=== PATIENT | male | born 1970 | race Caucasian/White ===

== ENCOUNTER → 2024-11-24 | Outpatient (CLI) | payer BC, SELFPAY ==
--- NOTE | 2024-11-24 13:44 | XR_ITS ---
Examination:Left hip AP, lateral, AP pelvis 3 views Technique: Hip AP lateral, AP pelvis, 3 views Exam date and time:November 24, 2024 at 1355 hours INDICATIONS: Left hip pain beginning 5 years ago. FINDINGS: Severe left hip osteoarthritis, severe joint space narrowing with subarticular sclerosis Advanced right hip osteoarthritis Bones of the pelvis intact No fracture IMPRESSION: Severe left hip osteoarthritis Advanced right hip osteoarthritis.
== END | disposition home or self-care (01) ==
PROVIDERS: PCP Family Medicine; Referring Provider Family Medicine; Visit Provider Family Medicine
DX: M16.0 Bilateral primary osteoarthritis of hip (principal)
CPT/HCPCS: 73502

== ENCOUNTER 2025-03-18 09:48 | Outpatient (AMB) | payer BC, SELFPAY ==
[2025-03-18 10:19] VITALS: BP 130/91; PULSE 77; RESP 18; TEMP 36.3; O2SAT 98; BMI 36.0
--- NOTE | 2025-03-18 10:19 | PD.ORTHCLVIS ---
Vital signs 03/18/25 10:19 Height 1.78 m Height Method Stated Weight 113.908 kg Weight Measurement Method Standing Scale BMI 36.0 BP 130/91 H Blood Pressure Source Automatic Cuff Blood Pressure Location Left Upper Arm Position Sitting Respiration 18 Pulse 77 Pulse Source Monitor Temp 97.3 F Temp Source Temporal Artery Scan Pulse Oximetry (%) 98 Oxygen Delivery Method Room Air Med/Allergies Allergies & Medications Allergies No Known Allergies Allergy (Verified 03/18/25 10:20) Medication Reconciliation oxycodone-acetaminophen 10 mg-300 mg tablet 1 tab PO Q4H PRN Pain 01/13/21 [History Confirmed 03/18/25] amitriptyline 25 mg tablet 25 mg PO QDAY 03/18/25 [History Confirmed 03/18/25] meloxicam 15 mg tablet 15 mg PO QDAY 03/18/25 [History Confirmed 03/18/25] Exam Exam Patient is in no acute distress and is cooperative with the examination today. Breathing is nonlabored. In no respiratory distress. Patient has no paraspinal tenderness. Spinal deformity cannot be appreciated. The gait of the patient is nonantalgic Bilateral extremities were evaluated and demonstrates sensation intact to light touch. Palpable pedal pulses are present. No significant edema is present. Bilateral knees were examined and the patient has full strength and range of motion.. The right hip was examined. Patient was able to flex to 90 degrees, adduct to 30 degrees, abduct to 40 degrees, internally rotate to 10 degrees, and externally rotate to 20 degreesPatient has positive logroll and Stinchfield The left hip was examined. Patient was able to flex to 90 degrees, adduct to 30 degrees, abduct to 40 degrees, internally rotate to 10 degrees, and externally rotate to 20 degrees. Patient has a positive logroll and Stinchfield X-rays of the bilateral hips demonstrates complete joint space narrowing bilaterally. There is significant arthritis present Assessment and Plan Problem List (1) Bilateral hip joint arthritis: Status: Acute Plan: Patient is a pleasant 54-year-old male with bilateral hip arthritis of significant severity. We thus discussed total hip replacement is a reasonable option. The left side hurts more we will start on the side. He has tried meloxicam 15 mg for a while. The pain is affecting his quality life and happiness The nature and purpose of the total hip replacement, alternative method(s) of treatment, the material risks involved, and the possibility of complications were fully explained to the patient. The patient does NOT have any of the following contraindications to JOURDAN: - Active infection of the hip joint, OR - Active systemic bacteremia, OR - Active skin infection or open wound at surgical site, OR - Neuropathic arthritis, OR - Severe, rapidly progressive neurological disease, OR - Severe medical condition that makes risks of the surgery outweigh the potential benefit The patient was told the most common risks and complications associated with a total hip replacement include, but are not limited to: blood clots in the leg, fatal pulmonary embolism, dislocation of the prosthesis, intraoperative and postoperative fractures of the femur or acetabulum, infection, failure of the prosthesis or grafting materials, complications from anesthesia, reactions to blood transfusions, postoperative leg length inequality, instability of the hip replacement, nerve damage or injury, vascular injury, delayed wound healing, infection, other injury or even . In addition, there are risks associated with anesthesia given during this operation. Also, the patient was told that after undergoing a total hip replacement there may still be persistent pain or disability. The patient was informed that the success of this operation in part depends upon the mechanical devices which are going to be implanted and that these devices can fail or malfunction, and may need to be repaired or replaced and there are no guarantees as to the longevity of this device or its parts and that it or its parts could fail prematurely. The patient was also notified that during the course of surgery, there may be a need to use bone graft from donors, and that any bone graft used will be carefully screened for communicable diseases, including AIDS, hepatitis, Fred-Creutzfeldt, or other diseases, but despite the screening procedures, there is a small chance that they could contract one of these diseases. Finally, the patient was asked to follow completely and fully with all advice and recommended treatments, and that recovery and ultimate outcome are affected by their compliance with recommended treatment. We discussed the risks, benefits and treatment alternatives, and the patient is interested in proceeding with surgery. We will try to set this up as expeditiously as possible. Office Procedures GNS Level of Care Nursing/Assessment Patient Status: Initial/New Patient Nursing Assessment/Reassesment: Medication Reconciliation, Update PMH in EMR and Vital Signs Coordination of Care: Complex Care and Chronic Disease 1-5, Education Complex Pt/Fam, Consent,records obtained, informed consent, 1 Ins Authorization, Lab and Imaging orders, Results/Orders obtained and Staff clarify orders New Patient Charge New Patient Point Assignment: 1124 New Patient Point Charge: SHOE SHINER Level 4 ([id number]) MA Intake Visit Data Collection New Patient or Established: Established Patient (seen at [facility] within 3 years) Reason for Visit:: LT HIP PAIN Seen by Clinical Staff ONLY (RN/MA): No Panel Flow Machine Operator Required: No PCP or OBGYN visit in last 3 months: Yes Hx Now: No Do You Feel Safe at Home: Yes Authorities Contacted: N/A Questionairres Past Medical History Past Medical History Have you ever been diagnosed with any of the following: Cardiology Problems Congestive Heart Failure: No Respiratory Problems Chronic Obstructive Pulmonary Disease (COPD): No Asthma: No Smoking: Yes (NOT EVERY DAY ) Smoking Exposure: Yes Genital/Urinary Problems Renal Disease: No Endocrine Problems Diabetes Mellitus Type 1: No Diabetes Mellitus Type 2: No Blood Problems Sickle Cell Disease: No Subjective Visit Visit for: new patient and hip (LEFT HIP) Immunization / Flu Flu Vaccine in the Last 12 Months: No Flu Vaccine Exclusion Criteria: Refused by Patient History of Present Illness Chief complaint: Bilateral hip pain Cayetano is a pleasant 54-year-old male with left greater than right hip pain. A lot of the pain is in his groin. He has tried meloxicam and other anti-inflammatories. The pain has been ongoing for 4 years. The pain is making it very difficult for him to ambulate long distances. The pain is affecting his quality life and his happiness Personal History Red flag PMH: none Pain Pain level (0-10): 2 Pain duration: 5 YEARS Pain location: groin Pain quality: sharp and other (specify) (SWELLING ) Pain timing: night and increases with activity Associated signs & symptoms: stiffness Ambulatory data Ambulatory device: none Walking distance (minutes): 1 Treatments Number of previous injections: 0 Number of Physical Therapy sessions: 0 Improvement with NSAIDS: n/a Review of Systems Review of Systems: All systems negative unless otherwise noted in HPI.
== END 2025-03-18 10:56 | disposition home or self-care (01) ==
LOC: HODSRG 09:48
PROVIDERS: PCP Family Medicine; Referring Provider Family Medicine; Supervising Provider Orthopaedic Surgery Adult Reconstructive Orthopaedic Surgery; Visit Provider Orthopaedic Surgery Adult Reconstructive Orthopaedic Surgery
DX: M16.0 Bilateral primary osteoarthritis of hip (principal); M25.552 Pain in left hip; M25.551 Pain in right hip
CPT/HCPCS: 99204; G0463

== ENCOUNTER → 2025-03-18 | Outpatient (CLI) | payer BC, SELFPAY ==
[2025-03-18 14:03] LABS: Basophils % (Auto) 0 % (0-2.5); Eosinophils # (Auto) 0.2 Thou/mm3 (0.0-0.5); Eosinophils % (Auto) 3 % (0-10); Hematocrit 46.7 % (41.0-53.0); Hemoglobin 15.8 g/dL (13.5-16.0); Immature Granulocytes % (Auto) 0 % (0-0); Immature Granulocytes Auto 0.03 Thou/mm3 (0.00-0.00); Lymphocytes # (Auto) 3.8 Thou/mm3 (1.0-4.8); Lymphocytes % (Auto) 44 % (10-50); Mean Corpuscular HGB Conc 33.8 g/dl (31.0-37.0); Mean Corpuscular Hemoglobin 29.6 pg (25.0-35.0); Mean Corpuscular Volume 88 fL (80-100); Monocytes # (Auto) 0.5 Thou/mm3 (0.0-0.8); Monocytes % (Auto) 6 % (0-12); Neutrophils % (Auto) 47 % (37-80); Nucleated Red Blood Cell % 0 /100 WBC (0); Platelet Count 285 Thou/mm3 (140-440); Red Blood Count 5.34 Miln/mm3 (4.50-5.90); White Blood Count 8.5 Thou/mm3 (3.8-10.6)
[2025-03-18 14:11] LABS: INR 0.9 (0.9-1.3); Partial Thromboplastin Time 27.3 Seconds (22.0-36.0); Prothrombin Time 10.4 Seconds (9.0-12.2)
[2025-03-18 14:13] LABS: Glucose Estimated Average 105 mg/dL (80-131); Hemoglobin A1C 5.3 % Hgb (4.8-6.0)
[2025-03-18 14:14] LABS: Alanine Aminotransferase 30 U/L (10-49); Albumin, Serum 5.1 gm/dL (3.5-5.0); Albumin/Globulin Ratio 2.1 (1.2-2.2); Alkaline Phosphatase 69 U/L (46-116); Anion Gap 10 (7-16); Aspartate Amino Transferase 26 U/L (0-34); BUN/Creatinine Ratio 14 Ratio (12-20); Bilirubin,Total 0.5 mg/dL (0.3-1.2); Blood Urea Nitrogen 13 mg/dL (9-23); Calcium 10.1 mg/dL (8.3-10.6); Calcium (Corrected) 10.1 mg/dL (8.5-10.1); Carbon Dioxide 28.5 mMol/L (20.0-31.0); Chloride 100 mMol/L (98-107); Creatinine (Component) 0.9 mg/dL (0.6-1.3); Globulin 2.4 gm/dL (2.3-3.5); Glucose 102 mg/dL (74-106); Osmolality,Calculated 275 (275-295); Potassium 4.8 mMol/L (3.4-5.1); Sodium 138 mMol/L (136-145); Total Protein 7.5 gm/dL (5.7-8.2); eGFR > 60 See Note
[2025-03-18 14:24] LABS: Prostate Specific Antigen 0.45 ng/mL (0-4.00)
--- NOTE | 2025-03-24 09:11 | EKG_ITS ---
[facility] Test Date: 2025-03-18 Pat Name: JACKELYN JOSUE Department: Room: - Gender: Male General Ii Farmworker: RODRIGO : 1970 Requested By: Jayy Paredes Order Number: [id number] Reading MD: Jayy Paredes Measurements Intervals Delta Rate: 74 P: 57 WI: 153 QRS: 41 QRSD: 101 T: 14 QT: 397 QTc: 441 Interpretive Statements SINUS RHYTHM No previous ECG available for comparison /store/S0/[id number]/[id number].pdf
== END | disposition home or self-care (01) ==
LOC: SEKG 12:16
PROVIDERS: PCP Family Medicine; Referring Provider Family Medicine; Visit Provider Family Medicine
DX: Z01.818 Encounter for other preprocedural examination (principal); N40.0 Benign prostatic hyperplasia without lower urinary tract symptoms; M16.11 Unilateral primary osteoarthritis, right hip
CPT/HCPCS: 36415; 80053; 83036; 84153; 85025; 85610; 85730; 93005

== ENCOUNTER 2025-04-06 14:18 | Outpatient (AMB) | payer BC, SELFPAY ==
[2025-04-06 14:35] VITALS: BP 145/92; PULSE 100; RESP 19; TEMP 36.6; O2SAT 98; BMI 35.9
--- NOTE | 2025-04-06 14:35 | ORTHONT_ITS ---
Vital signs 04/06/25 14:35 Height 1.78 m Height Method Stated Weight 113.88 kg Weight Measurement Method Standing Scale BMI 35.9 BP 145/92 H Blood Pressure Source Automatic Cuff Blood Pressure Location Left Upper Arm Position Sitting Respiration 19 Pulse 100 Pulse Source Monitor Temp 97.9 F Temp Source Temporal Artery Scan Pulse Oximetry (%) 98 Oxygen Delivery Method Room Air Med/Allergies Allergies & Medications Allergies No Known Allergies Allergy (Verified 04/06/25 14:36) Medication Reconciliation oxycodone-acetaminophen 10 mg-300 mg tablet 1 tab PO Q4H PRN Pain 01/13/21 [History Confirmed 04/06/25] amitriptyline 25 mg tablet 25 mg PO QDAY 03/18/25 [History Confirmed 04/06/25] meloxicam 15 mg tablet 15 mg PO QDAY 03/18/25 [History Confirmed 04/06/25] Exam Exam Patient is in no acute distress and is cooperative with the examination today. Breathing is nonlabored. In no respiratory distress. Patient has no paraspinal tenderness. Spinal deformity cannot be appreciated. The gait of the patient is nonantalgic Bilateral extremities were evaluated and demonstrates sensation intact to light touch. Palpable pedal pulses are present. No significant edema is present. Bilateral knees were examined and the patient has full strength and range of motion.. The right hip was examined. Patient was able to flex to 90 degrees, adduct to 30 degrees, abduct to 40 degrees, internally rotate to 10 degrees, and externally rotate to 20 degreesPatient has positive logroll and Stinchfield The left hip was examined. Patient was able to flex to 90 degrees, adduct to 30 degrees, abduct to 40 degrees, internally rotate to 10 degrees, and externally rotate to 20 degrees. Patient has a positive logroll and Stinchfield X-rays of the bilateral hips demonstrates complete joint space narrowing bilaterally. There is significant arthritis present Assessment and Plan Problem List (1) Bilateral hip joint arthritis: Status: Acute Plan: Patient is a pleasant 54-year-old male with bilateral hip arthritis of significant severity. We thus discussed total hip replacement is a reasonable option. The left side hurts more we will start on the side. He has tried dimitry oxicam 15 mg for a while. The pain is affecting his quality life and happiness The nature and purpose of the total hip replacement, alternative method(s) of treatment, the material risks involved, and the possibility of complications were fully explained to the patient. The patient does NOT have any of the following contraindications to JOURDAN: - Active infection of the hip joint, OR - Active systemic bacteremia, OR - Active skin infection or open wound at surgical site, OR - Neuropathic arthritis, OR - Severe, rapidly progressive neurological disease, OR - Severe medical condition that makes risks of the surgery outweigh the potential benefit The patient was told the most common risks and complications associated with a total hip replacement include, but are not limited to: blood clots in the leg, fatal pulmonary embolism, dislocation of the prosthesis, intraoperative and postoperative fractures of the femur or acetabulum, infection, failure of the prosthesis or grafting materials, complications from anesthesia, reactions to blood transfusions, postoperative leg length inequality, instability of the hip replacement, nerve damage or injury, vascular injury, delayed wound healing, in fection, other injury or even . In addition, there are risks associated with anesthesia given during this operation. Also, the patient was told that after undergoing a total hip replacement there may still be persistent pain or disability. The patient was informed that the success of this operation in part depends upon the mechanical devices which are going to be implanted and that these devices can fail or malfunction, and may need to be repaired or replaced and there are no guarantees as to the longevity of this device or its parts and that it or its parts could fail prematurely. The patient was also notified that during the course of surgery, there may be a need to use bone graft from donors, and that any bone graft used will be carefully screened for communicable diseases, including AIDS, hepatitis, Fred-Creutzfeldt, or other diseases, but despite the screening procedures, there is a small chance that they could contract one of these diseases. Finally, the patient was asked to follow completely and fully with all advice and recommended treatments, and that recovery and ultimate outcome are affected by their compliance with recommended treatment. We discussed the risks, benefits and treatment alternatives, and the patient is interested in proceeding with surgery. We will try to set this up as expeditiously as possible. Office Procedures GNS Level of Care Nursing/Assessment Patient Status: Established Patient Nursing Assessment/Reassesment: Medication Reconciliation, Update PMH in EMR and Vital Signs Coordination of Care: Complex Care and Chronic Disease 1-5, Education Complex Pt/Fam, Consent,records obtained, informed consent, Results/Orders obtained and Staff clarify orders Established Patient Charge Established Patient Point Assignment: 95 Established Patient Point Charge: EP Level 3 (80-115) MA Intake Visit Data Collection New Patient or Established: Established Patient (seen at [facility] within 3 years) Reason for Visit:: PRE OP HIP Seen by Clinical Staff ONLY (RN/MA): No PCP or OBGYN visit in last 3 months: Yes Hx Now: No Do You Feel Safe at Home: Yes Authorities Contacted: N/A Questionairres Past Medical History Past Medical History Have you ever been diagnosed with any of the following: Cardiology Problems Congestive Heart Failure: No Respiratory Problems Chronic Obstructive Pulmonary Disease (COPD): No Asthma: No Smoking: Yes (NOT EVERY DAY ) Smoking Exposure: Yes Genital/Urinary Problems Renal Disease: No Endocrine Problems Diabetes Mellitus Type 1: No Diabetes Mellitus Type 2: No Blood Problems Sickle Cell Disease: No Subjective Visit Visit for: follow up visit and hip Immunization / Flu Flu Vaccine in the Last 12 Months: No Flu Vaccine Exclusion Criteria: No Exclusion Criteria History of Present Illness Chief complaint: Bilateral hip pain Cayetano is a pleasant 54-year-old male with left greater than right hip pain. A lot of the pain is in his groin. He has tried meloxicam and other anti- inflammatories. The pain has been ongoing for 4 years. The pain is making it very difficult for him to ambulate long distances. The pain is affecting his quality life and his happiness Personal History Red flag PMH: none Pain Pain level (0-10): 3 Pain duration: COMES AND GOES Pain location: outside (lateral) Pain quality: dull Pain timing: increases with activity Associated signs & symptoms: none Ambulatory data Ambulatory device: none Walking distance (minutes): 1 Treatments Number of previous injections: 0 Improvement with previous injections: No Number of Physical Therapy sessions: 0 Improvement with PT: No Improvement with NSAIDS: no Review of Systems Review of Systems: All systems negative unless otherwise noted in HPI.
== END 2025-04-06 14:52 | disposition home or self-care (01) ==
LOC: HODSRG 14:18
PROVIDERS: PCP Family Medicine; Referring Provider Family Medicine; Supervising Provider Orthopaedic Surgery Adult Reconstructive Orthopaedic Surgery; Visit Provider Orthopaedic Surgery Adult Reconstructive Orthopaedic Surgery
DX: M16.0 Bilateral primary osteoarthritis of hip (principal); M25.552 Pain in left hip; M25.551 Pain in right hip
CPT/HCPCS: 99213; G0463

== ENCOUNTER 2025-04-20 05:30 | Day surgery (SDC) | payer BC, SELFPAY ==
[2025-04-14 10:45] VITALS: BMI 35.2
[2025-04-14 11:59] LABS: Basophils # (Auto) 0.0 Thou/mm3 (0.0-0.2); Basophils % (Auto) 0 % (0-2.5); Eosinophils # (Auto) 0.4 Thou/mm3 (0.0-0.5); Eosinophils % (Auto) 5 % (0-10); Hematocrit 41.4 % (41.0-53.0); Hemoglobin 14.3 g/dL (13.5-16.0); Immature Granulocytes Auto 0.02 Thou/mm3 (0.00-0.00); Lymphocytes # (Auto) 3.2 Thou/mm3 (1.0-4.8); Lymphocytes % (Auto) 44 % (10-50); Mean Corpuscular HGB Conc 34.5 g/dl (31.0-37.0); Mean Corpuscular Hemoglobin 29.3 pg (25.0-35.0); Mean Corpuscular Volume 85 fL (80-100); Monocytes # (Auto) 0.4 Thou/mm3 (0.0-0.8); Monocytes % (Auto) 6 % (0-12); Neutrophils # (Auto) 3.3 Thou/mm3 (1.8-7.7); Neutrophils % (Auto) 45 % (37-80); Nucleated Red Blood Cell # 0.00 Thou/mm3 (0.00-0.00); Nucleated Red Blood Cell % 0 /100 WBC (0); Platelet Count 273 Thou/mm3 (140-440); RDW Standard Deviation 37.1 fL (35.1-43.9); Red Blood Count 4.88 Miln/mm3 (4.50-5.90); White Blood Count 7.3 Thou/mm3 (3.8-10.6)
[2025-04-14 12:05] LABS: Partial Thromboplastin Time 27.1 Seconds (22.0-36.0)
[2025-04-14 12:13] LABS: Anion Gap 5 (7-16); BUN/Creatinine Ratio 11 Ratio (12-20); Blood Urea Nitrogen 9 mg/dL (9-23); Calcium 8.8 mg/dL (8.3-10.6); Carbon Dioxide 25.9 mMol/L (20.0-31.0); Chloride 109 mMol/L (98-107); Creatinine (Component) 0.8 mg/dL (0.6-1.3); Estimated Creatinine Clearance 130.2 mL/min (>60); Glucose 115 mg/dL (74-106); Osmolality,Calculated 279 (275-295); Potassium 4.3 mMol/L (3.4-5.1); Sodium 140 mMol/L (136-145); eGFR > 60 See Note
[2025-04-14 13:16] LABS: INR 0.9 (0.9-1.3); Prothrombin Time 10.4 Seconds (9.0-12.2)
[2025-04-20] VITALS (12 sets, daily range): BP systolic 110–141; BP diastolic 73–98; PULSE 84–96; RESP 12–20; TEMP 36.6–36.9; O2SAT 95–100; BMI 37.0
[2025-04-20] MEDS: PREGABALIN 75 MG CAPSULE PO (07:09)
[2025-04-20] MEDS: MELOXICAM 7.5 MG TABLET PO (07:09)
[2025-04-20] MEDS: ACETAMINOPHEN 325 MG TABLET 650 MG PO (07:09)
[2025-04-20] MEDS: RINGERS LACTATED 1000 ML 1,000 ML 20 ML IV (07:11)
--- NOTE | 2025-04-20 07:30 | XR_ITS ---
Examination: AP left hip single view TECHNIQUE: AP left hip single view Date and time: April 20, 2025 0900 hours INDICATIONS: Status post hip arthroplasty today. FINDINGS: Total left hip arthroplasty. Satisfactory alignment IMPRESSION: Total left hip arthroplasty with satisfactory alignment
--- NOTE | 2025-04-20 09:38 | PD.SUROPNT ---
Date of Procedure 04/20/25 Pre Op Diagnosis left hip osteoarthritis Post Op Diagnosis left hip osteoarthritis Procedure left total hip replacement Findings osteophytes, full thickness cartilage loss Procedure Description Indications: The patient is a 54y.o. year-old with a longstanding history of left hip pain. After considering the patient's condition and the impact of their hip injury on the patient's quality of life and risks of nonoperative treatment, total hip replacement was offered as a reasonable option. Prior to the surgery I discussed the nature of the hip replacement surgery including alternatives to surgery and the purpose of, and indications for proceeding with surgery. I discussed that this surgery is a shared decision between the patient and the surgeon. Risks and benefits and alternatives of the procedure have been explained to the patient and their family. Anesthesia complications and risks include but are not limited to stroke, heart attack, and . The surgical risks include but are not limited to infection, instability/dislocation, bleeding, nerve and blood vessel injury, deep vein thrombosis, pulmonary embolus, stiffness, pain, scar, need for reoperation, leg length discrepancy, thigh numbness, weakness, and mechanical failure of the implant including loosening, metal complications, metal allergy, wear or breakage. I discussed the expected recovery from surgery and the importance of compliance with all our pre and post-operative recommendations in order to maximize the recovery. The patient/family understands the risks of loss of life, loss of limb and, loss of function and wishes to proceed. They understand they are at increased risk for infection given their history of smoking. A signed and witnessed consent was obtained and placed in the chart. Patient Positioning: The patient was placed in the lateral decubitus position on a standard table using a pegboard. An axillary role was placed. All extremities were padded to ensure adequate protection. A elizalde catheter was aseptically inserted. Time Out: A timeout was performed prior to the procedure which verified the correct patient, positioning, operation to be performed, operative site, antibiotics, allergies, imaging, and any other concerns. All parties were in agreement. Procedure in detail: The operative site was cleaned and draped in the usual sterile fashion. A final timeout was performed with all parties in agreement. We first placed percutaneous reynaldo pins above the ASIS and attached a hip array. A modified anterolateral approach to the hip was utilized. A 16cm skin incision was made centered over the greater trochanter in line with the femur. This was taken down through skin and subcutaneous tissue using a 10 blade. Bleeding was controlled using electrocautery. The fascia was identified and split in line with the femur. The charnley retractor was then placed. The abductor insertion was identified and a split made in the anterior 1/3 of the tendon proximally. Retractors were placed and the gluteus minimus was visualized. A capsulotomy was made down to the femoral neck anterior to the minimus. A split was then made in the anterior 1/3 of the vastus lateralis. A retractor was then placed anterior to the femoral shaft, the tendon was tagged with #1 ethibond sutures and a U-shaped split was made in the anterior 1/3 of the abductor tendon being careful to leave enough tendon to re-attach. The hip was then gently externally rotated as the anterior tissues were taken down with the tendon and capsule as one sleeve. Once the anterior tissue had been release off of bone a bone hook was placed and the hip was gently dislocated. Retractors were placed around the femoral neck and the femoral neck osteotomy was then made to freshen up the cut. The femoral head removed. The leg was then placed in extension and retractors were placed anterior and posterior to the acetabulum. We first mapped the acetabulum and pelvis with a probe. The inferior capsule was release to improved visualization and the labrum and osteophytes around the acetabulum were removed. The acetabulum was then reamed to bleeding bone with adequate wall coverage and the cup was impacted into place using the DocDep robot. Screws were then placed followed by the liner which was impacted and confirmed to be seated. We then turned our attention to the femur. The leg was brought into external rotation and the femur was exposed. A canal finder was used followed by a box osteotomy and the femur was broached sequentially. The trial stem was then left in and the hip was trialed using various neck offsets and head sizes until the appropriate size was found based on leg length, stability. Once we were satisfied with the construct a cross-table AP pelvis radiograph was obtained to confirm appropriate positioning and sizing. The hip was then dislocated and the trials were then removed and the final stem impacted into placed. The hip was then again trialed and the appropriate head size identified. The chavez taper was then cleaned and dried and the final head impact into place and tested. The acetabulum was irrigated and confirmed to be free of debris. The hip was then reduced and taken through range of motion. The hip was stable in abduction and external rotation, adduction and external rotation, flexion past 90 degrees and internal rotation past 20 degrees. It did not sublux throughout range of motion and no impingement was detected. Leg lengths were appropriately restored based on preoperative leg lengths and intraoperative testing. Lengths and offset were further verified with the robot. We then removed the pins and the greater troch marker. The hip was then copiously irrigated with dilute betadine followed by normal saline. The hip was then injected with the cocktail per protocol The hip was the closed in layers. The abductor tendon was closed with #1 ethibond. The fascia was closed with 0 Vicryl followed by an 0 V-lock. . The deep layer was closed with 0-Vicryl and the subcutaneous layer by a 2-0 Vicryl. The subdermal layer was closed with a 3-0 monocryl. The skin was then cleaned and dried and steri-strips placed followed by a sterile dressing. The drapes were then taken down and the patient was placed supine. Leg lengths were confirmed to be appropriate and the patient's lower extremities were warm and well perfused with brisk capillary refill and palpable pulses. The patient was then awoken, transferred to the [facility] and taken to the PACU in stable condition. They tolerated the procedure well. The patient's family/caregiviers were made aware of their condition. Postoperative plan Activity: WBAT, no hip precautions , no active hip abduction DVT Prophylaxis: aspirin 81mg BID Antibiotics: Standard postoperative antibiotics x 24 hours Implants: [place] 54 cup, 3 highinsignia, 1 screw, standard liner, 36-0 head Anesthesia GETA Implants shan Pathology / specimen None Pathology comment: none Estimated Blood Loss 150 Condition Stable Disposition same day Surgeon Igor Pressley MD Surgical Staff Operation Date: 04/20/25 07:30 Case Staff TRAFFIC CONTROLLER CABLE: Vic Meyer RNpipefitter helper: Laurel Riggs
--- NOTE | 2025-04-20 09:42 | XR_ITS ---
Examination:Left hip AP, lateral, AP pelvis 3 views Technique: Hip AP lateral, AP pelvis, 3 views Exam date and time:April 20, 2025 1019 hours INDICATIONS: Status post left hip arthroplasty today FINDINGS: Total left arthroplasty. Satisfactory alignment. No fracture IMPRESSION: Total left knee arthroplasty with satisfactory alignment
[2025-04-20] MEDS: fentaNYL CIT INJ 50 mCg/ML AMP 2ML IVP (10:17)
--- NOTE | 2025-04-20 10:22 | SUR.PHASEI ---
0953: Pt received in [facility] via [facility]. Report from Mi MATIAS and Vic URIAS. Pt groggy. Easily aroused with eye opening. Resp even, unlabored. VS stable. Dressings x2 to left hip dry, clean, intact. Bilateral pedal pulses strong, regular. No c/o pain. 1017: Pt has been resting. Has c/o pain to left hip. Resp even, unlabored. VS stable. Fentanyl given per order. 1023: Pt stated pain level coming down and is much more comfortable. Resp even, unlabored. VS stable. Bilateral pedal pulses strong, regular. Dressing remains dry, clean, intact.
--- NOTE | 2025-04-20 11:20 | SUR.PHASEII ---
1027: Pt states his is getting relief from pain medication. Rates pain level 3/10. Resp even, unlabored. VS stable. 1030: Radiology here to do ordered x-rays. 1043: Pt tolerated procedure with no complaints voiced.
--- NOTE | 2025-04-20 11:24 | SUR.PHASEII ---
1050: Pt resting with no complaints voiced. VS stable. Dressing left hip remain dry, clean, intact. Bilateral pedal pulses strong, regular. Pt tolerating po fluids with no difficulty swallowing and no n/v.
--- NOTE | 2025-04-20 14:50 | SUR.PHASEII ---
1120: Pt stated he felt comfortable enough to walk. Requested to be able to go home. Pt rates pain level 2/10. Has mild discomfort. VS stable. Dressing dry, clean, intact. Physical Therapy notified. 1130: Physical Therapy here to assess pt. 1150: Physical Therapy assessment complete. Ok'd pt to be discharged. 1215: Pt fully awake, oriented x3. VS stable. Dressing remains dry, clean, intact. Pt and daughter stated understanding of discharge instructions. Pt also instructed to roller picker his prescription at [facility]. Pt discharged from [facility] in stable condition.
== END 2025-04-20 12:15 | disposition home or self-care (01) ==
PROVIDERS: PCP Family Medicine; Referring Provider Orthopaedic Surgery Adult Reconstructive Orthopaedic Surgery; Visit Provider Orthopaedic Surgery Adult Reconstructive Orthopaedic Surgery
PROC: (CPT 27130; principal; 2025-04-20 07:30)
DX: M16.12 Unilateral primary osteoarthritis, left hip (principal); M25.752 Osteophyte, left hip
CPT/HCPCS: 27130; 20985; 36415; 73501; 73502; 80048; 85025; 85610; 85730; 97162; A4217; A4649; C1713; C1776; J0690; J1100; J1171; J2371; J2405; J2704; J3010; J3490; J7030; J7120; J7999; A4648; A9270

== ENCOUNTER 2025-05-05 12:57 | Outpatient (AMB) | payer BC, SELFPAY ==
--- NOTE | 2025-05-05 13:05 | PD.ORTHCLVIS ---
Vital signs 05/05/25 13:06 Height 1.78 m Height Method Measured Weight 114.475 kg Weight Measurement Method Standing Scale BMI 36.1 BP 149/83 H Blood Pressure Source Automatic Cuff Blood Pressure Location Left Upper Arm Position Sitting Respiration 18 Pulse 115 H Pulse Source Monitor Temp 97.8 F Temp Source Temporal Artery Scan Pulse Oximetry (%) 98 Oxygen Delivery Method Room Air Med/Allergies Allergies & Medications Allergies No Known Allergies Allergy (Verified 05/05/25 13:07) Medication Reconciliation amitriptyline 25 mg tablet 25 mg PO QDAY 03/18/25 [History Confirmed 05/05/25] meloxicam 15 mg tablet 15 mg PO QDAY 03/18/25 [History Confirmed 05/05/25] oxycodone 10 mg tablet 10 mg PO Q8H PRN pain 04/14/25 [History Confirmed 05/05/25] acetaminophen 500 mg tablet (Acetaminophen Extra Strength) 1,000 mg (2 x 500 mg) PO Q6H PRN pain #90 tabs 04/20/25 [Rx Confirmed 05/05/25] aspirin 81 mg tablet,delayed release 81 mg PO BID #60 tabs 04/20/25 [Rx Confirmed 05/05/25] doxycycline hyclate 100 mg tablet 100 mg PO BID #14 tabs 04/20/25 [Rx Confirmed 05/05/25] gabapentin 300 mg capsule 300 mg PO .qhs #30 caps 04/20/25 [Rx Confirmed 05/05/25] sennosides 8.6 mg-docusate sodium 50 mg tablet (Senna-S) 1 tab-cap PO QDAY #30 tabs 04/20/25 [Rx Confirmed 05/05/25] Exam Exam Patient is in no acute distress and is cooperative with the examination today. Breathing is nonlabored. In no respiratory distress. Patient has no paraspinal tenderness. Spinal deformity cannot be appreciated. The gait of the patient is nonantalgic Bilateral extremities were evaluated and demonstrates sensation intact to light touch. Palpable pedal pulses are present. No significant edema is present. Bilateral knees were examined and the patient has full strength and range of motion.. The right hip was examined. Patient was able to flex to 90 degrees, adduct to 30 degrees, abduct to 40 degrees, internally rotate to 10 degrees, and externally rotate to 20 degreesPatient has positive logroll and Stinchfield Left hip incision is clean dry and intact Assessment and Plan Problem List (1) Bilateral hip joint arthritis: Status: Acute Plan: Patient is a pleasant 54-year-old male with bilateral hip arthritis of significant severity. He is doing well status post left total hip replacement. We will see him back in approximately 4 weeks for routine follow-up Office Procedures GNS Level of Care Nursing/Assessment Patient Status: Established Patient Nursing Assessment/Reassesment: Medication Reconciliation, Update PMH in EMR and Vital Signs Coordination of Care: Complex Care and Chronic Disease 1-5, Education Complex Pt/Fam, Consent,records obtained, informed consent, Results/Orders obtained and Staff clarify orders Established Patient Charge Established Patient Point Assignment: 95 Established Patient Point Charge: EP Level 3 (80-115) MS Intake Visit Data Collection New Patient or Established: Established Patient (seen at [facility] within 3 years) Reason for Visit:: 2 WEEKS POST OP HIP SX 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 PCP or OBGYN visit in last 3 months: Yes Hx Now: No Do You Feel Safe at Home: Yes Authorities Contacted: N/A Questionairres Past Medical History Past Medical History Have you ever been diagnosed with any of the following: Neurological Problems Seizures: No Cardiology Problems Congestive Heart Failure: No Respiratory Problems Chronic Obstructive Pulmonary Disease (COPD): No Asthma: No Smoking: Yes (NOT EVERY DAY ) Smoking Exposure: Yes Stomache/Intestinal Problems Hepatitis: Yes (A as a child) Obesity: Yes Genital/Urinary Problems Renal Disease: No Musculoskeletal Problems Arthritis: Yes Endocrine Problems Diabetes Mellitus Type 1: No Diabetes Mellitus Type 2: No Blood Problems Sickle Cell Disease: No Other Problems Hospitalization: No Shingles: No Blood Transfusions: No Blood Transfusion Reaction: No Anesthesia Reactions: No Chicken Pox: Yes Cancer: No Subjective Visit Visit for: follow up visit, post op #2 and hip Immunization / Flu Flu Vaccine in the Last 12 Months: No Flu Vaccine Exclusion Criteria: No Exclusion Criteria History of Present Illness Chief complaint: 2 WEEK POST OP HIP SX Cayetano is a pleasant 54-year-old male with left greater than right hip pain. He is doing well status post left total hip replacement Personal History Red flag PMH: none BMI Counceling provided: Yes Pain Pain level (0-10): 2 Pain duration: COMES AND GOES Pain location: outside (lateral) Pain quality: aching Pain timing: increases with activity Associated signs & symptoms: none Ambulatory data Ambulatory device: cane Walking distance (minutes): 1 Treatments Number of previous injections: 0 Improvement with previous injections: No Number of Physical Therapy sessions: 0 Improvement with PT: No Improvement with NSAIDS: no Review of Systems Review of Systems: All systems negative unless otherwise noted in HPI.
[2025-05-05 13:06] VITALS: BP 149/83; PULSE 115; RESP 18; TEMP 36.6; O2SAT 98; BMI 36.1
== END 2025-05-05 13:16 | disposition home or self-care (01) ==
LOC: HODSRG 12:57
PROVIDERS: PCP Family Medicine; Referring Provider Family Medicine; Supervising Provider Orthopaedic Surgery Adult Reconstructive Orthopaedic Surgery; Visit Provider Orthopaedic Surgery Adult Reconstructive Orthopaedic Surgery
DX: M16.0 Bilateral primary osteoarthritis of hip (principal); Z96.642 Presence of left artificial hip joint; E66.9 Obesity, unspecified; Z71.3 Dietary counseling and surveillance; Z68.36 Body mass index [BMI] 36.0-36.9, adult
CPT/HCPCS: 99213; G0463

== ENCOUNTER 2025-06-02 13:00 | Outpatient (AMB) | payer BC, SELFPAY ==
--- NOTE | 2025-06-02 13:09 | PD.ORTHCLVIS ---
Vital signs 06/02/25 13:10 Height 1.78 m Height Method Stated Weight 116.261 kg Weight Measurement Method Standing Scale BMI 36.6 BP 144/87 H Blood Pressure Source Automatic Cuff Blood Pressure Location Left Upper Arm Position Sitting Respiration 18 Pulse 91 Pulse Source Monitor Temp 97.7 F Temp Source Temporal Artery Scan Pulse Oximetry (%) 95 Oxygen Delivery Method Room Air Med/Allergies Allergies & Medications Allergies No Known Allergies Allergy (Verified 06/02/25 13:11) Medication Reconciliation amitriptyline 25 mg tablet 25 mg PO QDAY 03/18/25 [History Confirmed 06/02/25] meloxicam 15 mg tablet 15 mg PO QDAY 03/18/25 [History Confirmed 06/02/25] acetaminophen 500 mg tablet (Acetaminophen Extra Strength) 1,000 mg (2 x 500 mg) PO Q6H PRN pain #90 tabs 04/20/25 [Rx Confirmed 06/02/25] gabapentin 300 mg capsule 300 mg PO .qhs #30 caps 04/20/25 [Rx Confirmed 06/02/25] Exam Exam Patient is in no acute distress and is cooperative with the examination today. Breathing is nonlabored. In no respiratory distress. Patient has no paraspinal tenderness. Spinal deformity cannot be appreciated. The gait of the patient is nonantalgic Bilateral extremities were evaluated and demonstrates sensation intact to light touch. Palpable pedal pulses are present. No significant edema is present. Bilateral knees were examined and the patient has full strength and range of motion.. The right hip was examined. Patient was able to flex to 90 degrees, adduct to 30 degrees, abduct to 40 degrees, internally rotate to 10 degrees, and externally rotate to 20 degreesPatient has positive logroll and Stinchfield Left hip incision is clean dry and intact Assessment and Plan Problem List (1) Bilateral hip joint arthritis: Status: Acute Plan: Patient is a pleasant 54-year-old male with bilateral hip arthritis of significant severity. He is doing well status post left total hip replacement. We discussed right total hip replacement today as the pain in his right hip is affecting his quality of life and happiness. I would do this through a lateral approach. He has previously tried physical therapy as well as anti-inflammatories and home exercises The nature and purpose of the total hip replacement, alternative method(s) of treatment, the material risks involved, and the possibility of complications were fully explained to the patient. The patient does NOT have any of the following contraindications to JOURDAN: - Active infection of the hip joint, OR - Active systemic bacteremia, OR - Active skin infection or open wound at surgical site, OR - Neuropathic arthritis, OR - Severe, rapidly progressive neurological disease, OR - Severe medical condition that makes risks of the surgery outweigh the potential benefit The patient was told the most common risks and complications associated with a total hip replacement include, but are not limited to: blood clots in the leg, fatal pulmonary embolism, dislocation of the prosthesis, intraoperative and postoperative fractures of the femur or acetabulum, infection, failure of the prosthesis or grafting materials, complications from anesthesia, reactions to blood transfusions, postoperative leg length inequality, instability of the hip replacement, nerve damage or injury, vascular injury, delayed wound healing, infection, other injury or even . In addition, there are risks associated with anesthesia given during this operation. Also, the patient was told that after undergoing a total hip replacement there may still be persistent pain or disability. The patient was informed that the success of this operation in part depends upon the mechanical devices which are going to be implanted and that these devices can fail or malfunction, and may need to be repaired or replaced and there are no guarantees as to the longevity of this device or its parts and that it or its parts could fail prematurely. The patient was also notified that during the course of surgery, there may be a need to use bone graft from donors, and that any bone graft used will be carefully screened for communicable diseases, including AIDS, hepatitis, Fred-Creutzfeldt, or other diseases, but despite the screening procedures, there is a small chance that they could contract one of these diseases. Finally, the patient was asked to follow completely and fully with all advice and recommended treatments, and that recovery and ultimate outcome are affected by their compliance with recommended treatment. We discussed the risks, benefits and treatment alternatives, and the patient is interested in proceeding with surgery. We will try to set this up as expeditiously as possible. Office Procedures GNS Level of Care Nursing/Assessment Patient Status: Established Patient Nursing Assessment/Reassesment: Medication Reconciliation, Update PMH in EMR and Vital Signs Coordination of Care: Complex Care and Chronic Disease 1-5, Education Complex Pt/Fam, Consent,records obtained, informed consent, Results/Orders obtained and Staff clarify orders Established Patient Charge Established Patient Point Assignment: 95 Established Patient Point Charge: EP Level 3 (80-115) MA Intake Visit Data Collection New Patient or Established: Established Patient (seen at [facility] within 3 years) Reason for Visit:: 6 WEEKS POST OP HIP SX 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 PCP or OBGYN visit in last 3 months: Yes Hx Now: No Do You Feel Safe at Home: Yes Authorities Contacted: N/A Questionairres Past Medical History Past Medical History Have you ever been diagnosed with any of the following: Neurological Problems Seizures: No Cardiology Problems Congestive Heart Failure: No Respiratory Problems Chronic Obstructive Pulmonary Disease (COPD): No Asthma: No Smoking: Yes (NOT EVERY DAY ) Smoking Exposure: Yes Stomache/Intestinal Problems Hepatitis: Yes (A as a child) Obesity: Yes Genital/Urinary Problems Renal Disease: No Musculoskeletal Problems Arthritis: Yes Endocrine Problems Diabetes Mellitus Type 1: No Diabetes Mellitus Type 2: No Blood Problems Sickle Cell Disease: No Other Problems Hospitalization: No Shingles: No Blood Transfusions: No Blood Transfusion Reaction: No Anesthesia Reactions: No Chicken Pox: Yes Cancer: No Subjective Visit Visit for: follow up visit, post op #3 and hip Immunization / Flu Flu Vaccine in the Last 12 Months: No Flu Vaccine Exclusion Criteria: No Exclusion Criteria History of Present Illness Chief complaint: 6 WEEK POST OP HIP SX Cayetano is a pleasant 54-year-old male with left greater than right hip pain. He is doing well status post left total hip replacement. He reports the right hip is affecting his quality life and happiness and this is limiting him Personal History Red flag PMH: none BMI Counceling provided: Yes Pain Pain level (0-10): 2 Pain duration: COMES AND GOES Pain location: outside (lateral) Pain quality: aching Pain timing: increases with activity Associated signs & symptoms: none Ambulatory data Ambulatory device: none Walking distance (minutes): 1 Treatments Number of previous injections: 0 Improvement with previous injections: No Number of Physical Therapy sessions: 0 Improvement with PT: No Improvement with NSAIDS: no Review of Systems Review of Systems: All systems negative unless otherwise noted in HPI.
[2025-06-02 13:10] VITALS: BP 144/87; PULSE 91; RESP 18; TEMP 36.5; O2SAT 95; BMI 36.6
--- NOTE | 2025-06-02 13:14 | XR_ITS ---
Examination:Left hip AP, lateral, AP pelvis 3 views Technique: Hip AP lateral, AP pelvis, 3 views Exam date and time:June 02, 2025 1323 hours INDICATIONS: Diagnosis primary unilateral osteoarthritis right hip, right hip pain months FINDINGS: Advanced right hip osteoarthritis Total left hip arthroplasty satisfactory alignment Bones of the pelvis intact IMPRESSION: Advanced right hip osteoarthritis.
--- NOTE | 2025-06-02 13:14 | XR_ITS ---
Examination:Right hip AP, lateral, AP pelvis 3 views Technique: Hip AP lateral, AP pelvis, 3 views Exam date and time: June 02, 2025 1323 hours INDICATIONS: Right hip pain for years, diagnosis unilateral osteoarthritis right hip, primary FINDINGS: Advanced right hip osteoarthritis, severe joint space narrowing No fracture or hip dislocation Left hip arthroplasty with satisfactory alignment IMPRESSION: Advanced right hip osteoarthritis
== END 2025-06-02 13:21 | disposition home or self-care (01) ==
LOC: HODSRG 13:00
PROVIDERS: PCP Family Medicine; Referring Provider Family Medicine; Supervising Provider Orthopaedic Surgery Adult Reconstructive Orthopaedic Surgery; Visit Provider Orthopaedic Surgery Adult Reconstructive Orthopaedic Surgery
DX: M16.0 Bilateral primary osteoarthritis of hip (principal); Z96.642 Presence of left artificial hip joint; M25.551 Pain in right hip; E66.9 Obesity, unspecified; Z71.3 Dietary counseling and surveillance; Z68.36 Body mass index [BMI] 36.0-36.9, adult
CPT/HCPCS: 73502; 73522; 99213; G0463

== ENCOUNTER 2025-06-29 05:35 | Day surgery (SDC) | payer BC, SELFPAY ==
[2025-06-28 07:17] VITALS: BMI 38.0
[2025-06-28 07:58] LABS: Basophils # (Auto) 0.0 Thou/mm3 (0.0-0.2); Basophils % (Auto) 0 % (0-2.5); Eosinophils # (Auto) 0.2 Thou/mm3 (0.0-0.5); Eosinophils % (Auto) 2 % (0-10); Hematocrit 44.6 % (41.0-53.0); Hemoglobin 14.6 g/dL (13.5-16.0); Immature Granulocytes Auto 0.08 Thou/mm3 (0.00-0.00); Lymphocytes # (Auto) 5.2 Thou/mm3 (1.0-4.8); Lymphocytes % (Auto) 45 % (10-50); Mean Corpuscular HGB Conc 32.7 g/dl (31.0-37.0); Mean Corpuscular Hemoglobin 28.4 pg (25.0-35.0); Mean Corpuscular Volume 87 fL (80-100); Monocytes # (Auto) 0.7 Thou/mm3 (0.0-0.8); Monocytes % (Auto) 6 % (0-12); Neutrophils # (Auto) 5.4 Thou/mm3 (1.8-7.7); Neutrophils % (Auto) 47 % (37-80); Nucleated Red Blood Cell # 0.00 Thou/mm3 (0.00-0.00); Nucleated Red Blood Cell % 0 /100 WBC (0); Platelet Count 315 Thou/mm3 (140-440); RDW Standard Deviation 38.4 fL (35.1-43.9); Red Blood Count 5.14 Miln/mm3 (4.50-5.90); White Blood Count 11.7 Thou/mm3 (3.8-10.6)
[2025-06-28 08:07] LABS: Anion Gap 10 (7-16); BUN/Creatinine Ratio 10 Ratio (12-20); Blood Urea Nitrogen 10 mg/dL (9-23); Calcium 9.7 mg/dL (8.3-10.6); Carbon Dioxide 29.4 mMol/L (20.0-31.0); Chloride 102 mMol/L (98-107); Creatinine (Component) 1.0 mg/dL (0.6-1.3); Estimated Creatinine Clearance 105.2 mL/min (>60); Glucose 137 mg/dL (74-106); Osmolality,Calculated 282 (275-295); Potassium 4.2 mMol/L (3.4-5.1); Sodium 141 mMol/L (136-145); eGFR > 60 See Note
[2025-06-28 09:02] LABS: INR 0.9 (0.9-1.3); Partial Thromboplastin Time 25.3 Seconds (22.0-36.0); Prothrombin Time 10.2 Seconds (9.0-12.2)
--- NOTE | 2025-06-28 14:20 | SUR.PREOP ---
WBC 11.7, Dr Pressley notified and ok to proceed.
[2025-06-29] VITALS (12 sets, daily range): BP systolic 106–128; BP diastolic 67–88; PULSE 77–92; RESP 12–18; TEMP 36.6; O2SAT 94–100; BMI 37.7
[2025-06-29] MEDS: ACETAMINOPHEN 325 MG TABLET 650 MG PO (06:46)
[2025-06-29] MEDS: PREGABALIN 75 MG CAPSULE PO (06:46)
[2025-06-29] MEDS: MELOXICAM 7.5 MG TABLET PO (06:46)
--- NOTE | 2025-06-29 07:20 | CHAP ---
Visited with patient and gave encouragement and prayer.
--- NOTE | 2025-06-29 07:30 | XR_ITS ---
Examination: AP right hip single view TECHNIQUE: Portable crosstable AP right hip single view Date and time: June 29, 2025 0928 hours INDICATIONS: Postop hip arthroplasty. FINDINGS: Total right hip arthroplasty. Satisfactory alignment IMPRESSION: Total right hip arthroplasty with satisfactory alignment
--- NOTE | 2025-06-29 09:56 | XR_ITS ---
Examination:Right hip AP, lateral, AP pelvis 3 views Technique: Hip AP lateral, AP pelvis, 3 views Exam date and time:June 29, 2020 5:11 AM INDICATIONS: Postop hip arthroplasty today FINDINGS: Right hip arthroplasty. Satisfactory alignment Left hip arthroplasty satisfactory alignment Bones of the pelvis intact IMPRESSION: Status post right hip arthroplasty with satisfactory alignment.
--- NOTE | 2025-06-29 09:58 | PD.SUROPNT ---
Date of Procedure 06/29/25 Pre Op Diagnosis right hip osteoarthritis Post Op Diagnosis right hip osteoarthritis Procedure right total hip replacement rola Findings full thickness cartilage loss and osteophytes Procedure Description Indications: The patient is a 54y.o. year-old with a longstanding history of left hip pain. After considering the patient's condition and the impact of their hip injury on the patient's quality of life and risks of nonoperative treatment, total hip replacement was offered as a reasonable option. Prior to the surgery I discussed the nature of the hip replacement surgery including alternatives to surgery and the purpose of, and indications for proceeding with surgery. I discussed that this surgery is a shared decision between the patient and the surgeon. Risks and benefits and alternatives of the procedure have been explained to the patient and their family. Anesthesia complications and risks include but are not limited to stroke, heart attack, and . The surgical risks include but are not limited to infection, instability/dislocation, bleeding, nerve and blood vessel injury, deep vein thrombosis, pulmonary embolus, stiffness, pain, scar, need for reoperation, leg length discrepancy, thigh numbness, weakness, and mechanical failure of the implant including loosening, metal complications, metal allergy, wear or breakage. I discussed the expected recovery from surgery and the importance of compliance with all our pre and post-operative recommendations in order to maximize the recovery. The patient/family understands the risks of loss of life, loss of limb and, loss of function and wishes to proceed. They understand they are at increased risk for infection given their history of smoking. A signed and witnessed consent was obtained and placed in the chart. Patient Positioning: The patient was placed in the lateral decubitus position on a standard table using a pegboard. An axillary role was placed. All extremities were padded to ensure adequate protection. A elizalde catheter was aseptically inserted. Time Out: A timeout was performed prior to the procedure which verified the correct patient, positioning, operation to be performed, operative site, antibiotics, allergies, imaging, and any other concerns. All parties were in agreement. Procedure in detail: The operative site was cleaned and draped in the usual sterile fashion. A final timeout was performed with all parties in agreement. We first placed percutaneous reynaldo pins above the ASIS and attached a hip array. A modified anterolateral approach to the hip was utilized. A 16cm skin incision was made centered over the greater trochanter in line with the femur. This was taken down through skin and subcutaneous tissue using a 10 blade. Bleeding was controlled using electrocautery. The fascia was identified and split in line with the femur. The charnley retractor was then placed. The abductor insertion was identified and a split made in the anterior 1/3 of the tendon proximally. Retractors were placed and the gluteus minimus was visualized. A capsulotomy was made down to the femoral neck anterior to the minimus. A split was then made in the anterior 1/3 of the vastus lateralis. A retractor was then placed anterior to the femoral shaft, the tendon was tagged with #1 ethibond sutures and a U-shaped split was made in the anterior 1/3 of the abductor tendon being careful to leave enough tendon to re-attach. The hip was then gently externally rotated as the anterior tissues were taken down with the tendon and capsule as one sleeve. Once the anterior tissue had been release off of bone a bone hook was placed and the hip was gently dislocated. Retractors were placed around the femoral neck and the femoral neck osteotomy was then made to freshen up the cut. The femoral head removed. The leg was then placed in extension and retractors were placed anterior and posterior to the acetabulum. We first mapped the acetabulum and pelvis with a probe. The inferior capsule was release to improved visualization and the labrum and osteophytes around the acetabulum were removed. The acetabulum was then reamed to bleeding bone with adequate wall coverage and the cup was impacted into place using the [employer] robot. Screws were then placed followed by the liner which was impacted and confirmed to be seated. We then turned our attention to the femur. The leg was brought into external rotation and the femur was exposed. A canal finder was used followed by a box osteotomy and the femur was broached sequentially. The trial stem was then left in and the hip was trialed using various neck offsets and head sizes until the appropriate size was found based on leg length, stability. Once we were satisfied with the construct a cross-table AP pelvis radiograph was obtained to confirm appropriate positioning and sizing. The hip was then dislocated and the trials were then removed and the final stem impacted into placed. The hip was then again trialed and the appropriate head size identified. The chavez taper was then cleaned and dried and the final head impact into place and tested. The acetabulum was irrigated and confirmed to be free of debris. The hip was then reduced and taken through range of motion. The hip was stable in abduction and external rotation, adduction and external rotation, flexion past 90 degrees and internal rotation past 20 degrees. It did not sublux throughout range of motion and no impingement was detected. Leg lengths were appropriately restored based on preoperative leg lengths and intraoperative testing. Lengths and offset were further verified with the robot. We then removed the pins and the greater troch marker. The hip was then copiously irrigated with dilute betadine followed by normal saline. The hip was then injected with the cocktail per protocol The hip was the closed in layers. The abductor tendon was closed with #1 ethibond. The fascia was closed with 0 Vicryl followed by an 0 V-lock. . The deep layer was closed with 0-Vicryl and the subcutaneous layer by a 2-0 Vicryl. The subdermal layer was closed with a 3-0 monocryl. The skin was then cleaned and dried and steri-strips placed followed by a sterile dressing. The drapes were then taken down and the patient was placed supine. Leg lengths were confirmed to be appropriate and the patient's lower extremities were warm and well perfused with brisk capillary refill and palpable pulses. The patient was then awoken, transferred to the [facility] and taken to the PACU in stable condition. They tolerated the procedure well. The patient's family/caregiviers were made aware of their condition. Postoperative plan Activity: WBAT, no hip precautions , no active hip abduction DVT Prophylaxis: aspirin 81mg BID Antibiotics: Standard postoperative antibiotics x 24 hours Implants: Rosaura 56 cup, 3 high insignia, 1 screws, standard liner, 40-0 head Anesthesia GETA Implants rosaura Pathology / specimen None Pathology comment: none Estimated Blood Loss 150 Condition Stable Disposition same day Surgeon Igor Pressley MD Surgical Staff Operation Date: 06/29/25 07:30 Case Staff GANG VIBRATOR OPERATOR: Brice Ovalle RNclinical allergist: Chelsey Russo
[2025-06-29] MEDS: fentaNYL CIT INJ 50 mCg/ML AMP 2ML IVP ×2 (11:10→11:22)
[2025-06-29] MEDS: ACETAMINOPHEN IVPB 1,000 MG/100 ML VIAL 250 MG IV (11:36)
--- NOTE | 2025-06-29 11:38 | SUR.PHASEI ---
1045: Pt received in [facility] via gurney. Report from Jolanta MATIAS and Joe URIAS. Oral airway in place. Resp even, unlabored. VS stable. Bilateral pedal pulses strong, regular on palpation. Dressing dry, clean, intact. 1055: Oral airway dc'd. Resp even, unlabored. 1110: Pt awake with c/o pain to right hip. Rates pain level 7/10. VS stable. Resp even, unlabored. Pain medication given per order.
--- NOTE | 2025-06-29 11:43 | SUR.PHASEII ---
1122: Pt continues to have c/o pain to right hip. Rates pain level 7/10. Resp even, unlabored. VS stable. Pain medication given per order. 1136: Pt states pain level coming down. Rates pain level 5/10. VS remain stable. Acetaminophen IV being given.
--- NOTE | 2025-06-29 15:34 | SUR.PHASEII ---
1205: Physical Therapy here to assess pt. 1228: Physical Therapy completed assessment. Stated pt could be discharged home. 1237: Pt tolerating po fluids with no difficulty swallowing and no n/v. 1256: Pt has met discharge criteria. Pt and son stated understanding of discharge instructions. 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 Pt discharged from [facility] in stable condition.
== END 2025-06-29 12:56 | disposition home or self-care (01) ==
PROVIDERS: PCP Family Medicine; Referring Provider Orthopaedic Surgery Adult Reconstructive Orthopaedic Surgery; Visit Provider Orthopaedic Surgery Adult Reconstructive Orthopaedic Surgery
PROC: (CPT 27130; principal; 2025-06-29 07:30)
DX: M16.11 Unilateral primary osteoarthritis, right hip (principal); M25.751 Osteophyte, right hip
CPT/HCPCS: 27130; S2900; 36415; 73501; 73502; 80048; 85025; 85610; 85730; A4217; A4649; C1713; C1776; J0131; J0690; J1100; J1171; J2250; J2371; J2405; J2704; J3010; J3490; J7030; J7120; J7999; A4648; A9270

== ENCOUNTER 2025-07-14 13:32 | Outpatient (AMB) | payer BC, SELFPAY ==
--- NOTE | 2025-07-14 13:46 | ORTHONT_ITS ---
Vital signs 07/14/25 13:48 Height 1.75 m Height Method Stated Weight 114.759 kg Weight Measurement Method Standing Scale BMI 37.4 BP 132/86 H Blood Pressure Source Automatic Cuff Blood Pressure Location Left Upper Arm Position Sitting Respiration 16 Pulse 88 Pulse Source Monitor Temp 97.6 F Temp Source Temporal Artery Scan Pulse Oximetry (%) 94 L Oxygen Delivery Method Room Air Med/Allergies Allergies & Medications Allergies No Known Allergies Allergy (Verified 07/14/25 13:48) Medication Reconciliation amitriptyline 25 mg tablet 25 mg PO QDAY 03/18/25 [History Confirmed 07/14/25] oxycodone 10 mg tablet 10 mg PO Q8H PRN pain 06/28/25 [History Confirmed 07/14/25] acetaminophen 500 mg tablet (Acetaminophen Extra Strength) 1,000 mg (2 x 500 mg) PO Q6H PRN pain #90 tabs 06/29/25 [Rx Confirmed 07/14/25] aspirin 81 mg tablet,delayed release 81 mg PO BID #60 tabs 06/29/25 [Rx Confirmed 07/14/25] doxycycline hyclate 100 mg tablet 100 mg PO BID #14 tabs 06/29/25 [Rx Confirmed 07/14/25] gabapentin 300 mg capsule 300 mg PO .qhs #30 caps 06/29/25 [Rx Confirmed 07/14/25] oxycodone 5 mg tablet 5 mg PO Q6H PRN pain #28 tabs 06/29/25 [Rx Confirmed 07/14/25] sennosides 8.6 mg-docusate sodium 50 mg tablet (Senna-S) 1 tab-cap PO QDAY #30 tabs 06/29/25 [Rx Confirmed 07/14/25] Assessment and Plan Problem List (1) Bilateral hip joint arthritis: Status: Acute Plan: Patient is a pleasant 54-year-old male with bilateral hip arthritis of s ignificant severity. He is doing well status post right hip replacement. He had his left hip done 3 months ago and 2 weeks ago had his right hip done. He will need disability for at least another 2-1/2 to 3 months. He does not want to do physical therapy as he reports that he is doing well. He will continue to wean off the cane and we will see him in 4 weeks with follow-up and new x-rays Plan We will see him back in 4 weeks with new x-rays Office Procedures GNS Level of Care Nursing/Assessment Patient Status: Established Patient Nursing Assessment/Reassesment: Medication Reconciliation, Update PMH in EMR and Vital Signs Coordination of Care: Complex Care and Chronic Disease 1-5, Education Complex Pt/Fam, Consent,records obtained, informed consent, Results/Orders obtained and Staff clarify orders Established Patient Charge Established Patient Point Assignment: 95 Established Patient Point Charge: EP Level 3 (80-115) Questionairres Past Medical History Past Medical History Have you ever been diagnosed with any of the following: Neurological Problems Seizures: No Cardiology Problems Congestive Heart Failure: No Respiratory Problems Chronic Obstructive Pulmonary Disease (COPD): No Asthma: No Smoking: Yes (NOT EVERY DAY ) Smoking Exposure: Yes Stomache/Intestinal Problems Hepatitis: Yes (A as a child) Obesity: Yes Genital/Urinary Problems Renal Disease: No Musculoskeletal Problems Arthritis: Yes Endocrine Problems Diabetes Mellitus Type 1: No Diabetes Mellitus Type 2: No Blood Problems Sickle Cell Disease: No Other Problems Hospitalization: No Shingles: No Blood Transfusions: No Blood Transfusion Reaction: No Anesthesia Reactions: No Chicken Pox: Yes Cancer: No Subjective Immunization / Flu Flu Vaccine in the Last 12 Months: Yes Flu Vaccine Exclusion Criteria: Already Received Review of Systems Review of Systems: All systems negative unless otherwise noted in HPI.
[2025-07-14 13:48] VITALS: BP 132/86; PULSE 88; RESP 16; TEMP 36.4; O2SAT 94; BMI 37.4
== END 2025-07-14 13:58 | disposition home or self-care (01) ==
LOC: HODSRG 13:32
PROVIDERS: PCP Family Medicine; Referring Provider Family Medicine; Supervising Provider Orthopaedic Surgery Adult Reconstructive Orthopaedic Surgery; Visit Provider Orthopaedic Surgery Adult Reconstructive Orthopaedic Surgery
DX: Z47.1 Aftercare following joint replacement surgery (principal); Z96.643 Presence of artificial hip joint, bilateral; E66.9 Obesity, unspecified; Z68.37 Body mass index [BMI] 37.0-37.9, adult
CPT/HCPCS: 99213; G0463

== ENCOUNTER 2025-08-18 13:34 | Outpatient (AMB) | payer BC, SELFPAY ==
[2025-08-18 13:47] VITALS: BP 135/84; PULSE 97; RESP 18; TEMP 36.2; O2SAT 95; BMI 38.1
--- NOTE | 2025-08-18 13:47 | PD.ORTHCLVIS ---
Vital signs 08/18/25 13:47 Height 1.75 m Height Method Measured Weight 116.715 kg Weight Measurement Method Standing Scale BMI 38.1 BP 135/84 H Blood Pressure Source Automatic Cuff Blood Pressure Location Left Upper Arm Position Sitting Respiration 18 Pulse 97 Pulse Source Monitor Temp 97.2 F Temp Source Temporal Artery Scan Pulse Oximetry (%) 95 Oxygen Delivery Method Room Air Med/Allergies Allergies & Medications Allergies No Known Allergies Allergy (Verified 08/18/25 13:49) Medication Reconciliation amitriptyline 25 mg tablet 25 mg PO QDAY 03/18/25 [History Confirmed 08/18/25] oxycodone 10 mg tablet 10 mg PO Q8H PRN pain 06/28/25 [History Confirmed 08/18/25] acetaminophen 500 mg tablet (Acetaminophen Extra Strength) 1,000 mg (2 x 500 mg) PO Q6H PRN pain #90 tabs 06/29/25 [Rx Confirmed 08/18/25] aspirin 81 mg tablet,delayed release 81 mg PO BID #60 tabs 06/29/25 [Rx Confirmed 08/18/25] doxycycline hyclate 100 mg tablet 100 mg PO BID #14 tabs 06/29/25 [Rx Confirmed 08/18/25] gabapentin 300 mg capsule 300 mg PO .qhs #30 caps 06/29/25 [Rx Confirmed 08/18/25] oxycodone 5 mg tablet 5 mg PO Q6H PRN pain #28 tabs 06/29/25 [Rx Confirmed 08/18/25] sennosides 8.6 mg-docusate sodium 50 mg tablet (Senna-S) 1 tab-cap PO QDAY #30 tabs 06/29/25 [Rx Confirmed 08/18/25] Exam Exam Patient is in no acute distress and is cooperative with the examination today. Breathing is nonlabored. In no respiratory distress. Patient has no paraspinal tenderness. Spinal deformity cannot be appreciated. The gait of the patient is nonantalgic Bilateral extremities were evaluated and demonstrates sensation intact to light touch. Palpable pedal pulses are present. No significant edema is present. Bilateral knees were examined and the patient has full strength and range of motion.. The right hip was examined. Patient was able to flex to 90 degrees, adduct to 30 degrees, abduct to 40 degrees, internally rotate to 10 degrees, and externally rotate to 20 degreesPatient has positive logroll and [place] Left hip incision is clean dry and intact. He has 5 out of 5 abductor strength Assessment and Plan Problem List (1) Status post bilateral total hip replacement: Status: Acute Plan: Patient is a pleasant 55-year-old male status post bilateral total hip replacements anterolateral approach. He reports that he is doing well. Pain is minimal. Will see him back in approximately 2 months. He is going to work with therapy. He reports his gait is not quite normal yet Office Procedures GNS Level of Care Nursing/Assessment Patient Status: Established Patient Nursing Assessment/Reassesment: Medication Reconciliation, Update PMH in EMR and Vital Signs Coordination of Care: Complex Care and Chronic Disease 1-5, Education Complex Pt/Fam, Consent,records obtained, informed consent, Results/Orders obtained and Staff clarify orders Established Patient Charge Established Patient Point Assignment: 95 Established Patient Point Charge: Level 3 (80-115) MA Intake Visit Data Collection New Patient or Established: Established Patient (seen at [facility] within 3 years) Reason for Visit:: 6 WEEK POST OP Seen by Clinical Staff ONLY (RN/MA): No First Line Supervisor Required: No PCP or OBGYN visit in last 3 months: Yes Hx Now: No Do You Feel Safe at Home: Yes Authorities Contacted: N/A Questionairres Past Medical History Past Medical History Have you ever been diagnosed with any of the following: Neurological Problems Seizures: No Cardiology Problems Congestive Heart Failure: No Respiratory Problems Chronic Obstructive Pulmonary Disease (COPD): No Asthma: No Smoking: Yes (NOT EVERY DAY ) Smoking Exposure: Yes Stomache/Intestinal Problems Hepatitis: Yes (A as a child) Obesity: Yes Genital/Urinary Problems Renal Disease: No Musculoskeletal Problems Arthritis: Yes Endocrine Problems Diabetes Mellitus Type 1: No Diabetes Mellitus Type 2: No Blood Problems Sickle Cell Disease: No Other Problems Hospitalization: No Shingles: No Blood Transfusions: No Blood Transfusion Reaction: No Anesthesia Reactions: No Chicken Pox: Yes Cancer: No Subjective Visit Visit for: follow up visit and knee Immunization / Flu Flu Vaccine in the Last 12 Months: No Flu Vaccine Exclusion Criteria: Refused by Patient History of Present Illness Chief complaint: 6 WEEK POST OP Martinez is a pleasant 55-year-old male who is 6 weeks status post right total knee replacement and 4-month status post left total hip replacement. He is doing well. He Has minimal pain Personal History Red flag PMH: none Pain Pain level (0-10): 0 Ambulatory data Ambulatory device: none Treatments Improvement with previous injections: No Improvement with PT: No Improvement with NSAIDS: no Review of Systems Review of Systems: All systems negative unless otherwise noted in HPI.
--- NOTE | 2025-08-18 13:58 | XR_ITS ---
Examination: Bilateral hips, AP pelvis, 5 views Technique: AP, lateral views both hips, AP pelvis, 5 views Exam date and time: August 18, 2025, 1415 hours INDICATIONS: Bilateral hip replacements history FINDINGS: Bilateral total hip arthroplasties. Satisfactory alignment. No loosening of the prosthetic components. Bones of the pelvis intact IMPRESSION: Bilateral total hip arthroplasties with satisfactory alignment
== END 2025-08-18 13:59 | disposition home or self-care (01) ==
LOC: HODSRG 13:34
PROVIDERS: PCP Family Medicine; Referring Provider Family Medicine; Supervising Provider Orthopaedic Surgery Adult Reconstructive Orthopaedic Surgery; Visit Provider Orthopaedic Surgery Adult Reconstructive Orthopaedic Surgery
DX: Z47.1 Aftercare following joint replacement surgery (principal); Z96.651 Presence of right artificial knee joint; Z96.643 Presence of artificial hip joint, bilateral; E66.9 Obesity, unspecified; Z68.38 Body mass index [BMI] 38.0-38.9, adult
CPT/HCPCS: 73522; 99213; G0463